=== PATIENT | female | born 1965 | race Two or more races ===

== ENCOUNTER 2017-03-14 11:30 | Emergency (ER) | payer MEDICAID ==
[~2017-03-14 11:30] MED LIST: ACET300T4; AMLO-20 PO; ASPI81CH58 PO; CARI-277 PO; DULO30CA PO; METO-291; TRAM50TA2
[2017-03-14] MEDS ORDERED: SODIUM CHLORIDE 0.9% 500 ML IV ONE (12:02)
[2017-03-14 12:36] LABS: Urine Bilirubin Negative (Negative); Urine Color Yellow (Yellow); Urine Glucose Normal (Normal); Urine Ketone Negative (Negative); Urine Mucus FEW (None Seen); Urine Nitrite Negative (Negative); Urine RBC 224 /hpf (0 - 4); Urine Squamous Epithelial Cell FEW /hpf (<5); Urine Urobilinogen Normal (Negative); Urine pH 5.5 (5.0-8.0)
[2017-03-14 12:41] LABS: Urine Blood 3+ /uL (Negative)
[2017-03-14 12:47] LABS: Basophils # (auto) 0 uL; Basophils % (auto) 0.6 % (0.0-2.0); Eosinophils # (auto) 0.3 uL; Eosinophils % (auto) 3.9 % (0.0-7.0); Hematocrit 44.3 % (36.0-46.0); Hemoglobin 14.8 g/dL (12.2-16.2); Lymphocytes # (auto) 1.8 uL; Lymphocytes % (auto) 24.1 % (10.0-50.0); Mean Corpuscular Hemoglobin 27.9 pg (28.0-32.0); Mean Corpuscular Hgb Conc. 33.3 g/dL (32.0-36.0); Mean Corpuscular Volume 83.8 fL (80.0-100.0); Mean Platelet Volume 11.5 fL (7.4-10.4); Monocytes # (auto) 0.5 uL; Monocytes % (auto) 6.5 % (0.0-12.0); Neutrophils % (auto) 64.9 % (37.0-80.0); Platelet Count (auto) 211 10^3/uL (140-450); Red Cell Distribution Width 14.1 % (11.6-16.0); SUSPECT VIEW TRANSMISSION; White Blood Cell 7.6 10^3/uL (4.4-10.8)
[2017-03-14 12:57] LABS: Albumin 3.7 g/dL (3.4-5.0); Calcium 8.7 mg/dL (8.5-10.1); Potassium 3.8 mmol/L (3.5-5.1)
[2017-03-14 12:59] LABS: BUN/Creatinine Ratio 17.6
[2017-03-14 13:01] LABS: Bilirubin, Total 0.5 mg/dL (0.2-1.0); Total Protein 7.9 g/dL (6.4-8.2)
[2017-03-14 16:00] VITALS: BP 114/49
== END 2017-03-14 16:00 | disposition home or self-care (01) ==
LOC: ER 11:30
DX: N93.8 Other specified abnormal uterine and vaginal bleeding (principal); I10 Essential (primary) hypertension; Z88.8 Allergy status to other drugs, medicaments and biological substances
CPT/HCPCS: 36415; 76830; 76856; 80053; 81001; 84702; 85025; 94761; 96360; 99285; J7040

== ENCOUNTER 2018-08-12 15:43 | Emergency (ER) | payer MEDICAID ==
[~2018-08-12] VITALS: Ht 144.8 cm; Wt 98.9 kg
[~2018-08-12 15:43] MED LIST changes: -AMLO-20 PO; -METO-291; +METO1TAB9; +[UNRECOGNIZED DRUG - CODE] PO
[2018-08-12 16:33] LABS: Urine Bacteria FEW /hpf (None Seen); Urine Blood Negative /uL (Negative); Urine Specific Gravity 1.024 (1.001-1.035); Urine WBC 3 /hpf (0 - 5)
[2018-08-12 16:54] LABS: Basophils # (auto) 0.1 uL; Basophils % (auto) 0.9 % (0.0-2.0); Eosinophils # (auto) 0.1 uL; Eosinophils % (auto) 0.6 % (0.0-7.0); Hematocrit 41.7 % (36.0-46.0); Lymphocytes # (auto) 2.1 uL; Lymphocytes % (auto) 19.9 % (10.0-50.0); Mean Corpuscular Hgb Conc. 33.7 g/dL (32.0-36.0); Mean Corpuscular Volume 86.1 fL (80.0-100.0); Monocytes # (auto) 0.6 uL; Monocytes % (auto) 5.4 % (0.0-12.0); Neutrophils # (auto) 7.7 uL; Neutrophils % (auto) 73.2 % (37.0-80.0); Nucleated Red Blood Cells % 0.1 %; Platelet Count (auto) 183 10^3/uL (140-450); Red Blood Cells 4.84 10^6/uL (4.0-5.20); Red Cell Distribution Width 13.9 % (11.8-14.3); White Blood Cell 10.5 10^3/uL (4.4-10.8)
[2018-08-12 17:14] LABS: Alanine Aminotransferase 28 U/L (13-56); Albumin 3.8 g/dL (3.4-5.0); Anion Gap 9 (5-15); Aspartate Aminotransferase 29 U/L (15-37); Blood Urea Nitrogen 17 mg/dL (7-18); Calcium 8.5 mg/dL (8.5-10.1); Carbon Dioxide 23 mmol/L (21-32); Chloride 109 mmol/L (98-107); GFR African American 105 mL/min; GFR Non-African American 87 mL/min; Glucose 100 mg/dL (74-106); Magnesium 2.2 mg/dL (1.6-2.6); Potassium 3.9 mmol/L (3.5-5.1); Sodium 141 mmol/L (136-145)
[2018-08-12 17:18] LABS: Alkaline Phosphatase 105 U/L (45-117); Bilirubin, Total 0.5 mg/dL (0.2-1.0); Total Protein 7.9 g/dL (6.4-8.2)
[2018-08-12 18:41] VITALS: BP 191/93
[2018-08-12] MEDS ORDERED: ONDANSETRON HCL 4 MG/2 ML VIAL IM ONE (21:00)
[2018-08-12] MEDS ORDERED: KETOROLAC TROMETH 60MG/2ML VIAL IM ONE (21:00)
== END 2018-08-12 21:57 | disposition home or self-care (01) ==
LOC: ER 15:43
DX: K80.20 Calculus of gallbladder without cholecystitis without obstruction (principal); N39.0 Urinary tract infection, site not specified; E78.5 Hyperlipidemia, unspecified; I10 Essential (primary) hypertension; Z88.6 Allergy status to analgesic agent; Z79.82 Long term (current) use of aspirin; Z79.899 Other long term (current) drug therapy
CPT/HCPCS: 36415; 76705; 80053; 81001; 83735; 84484; 85025; 93005; 96372; 99285; J1885; J2405

== ENCOUNTER 2022-07-18 20:47 | Inpatient (IN) | payer MEDICAID ==
[~2022-07-18] VITALS: Ht 144.8 cm; Wt 82.3 kg
[~2022-07-18 20:47] MED LIST changes: +ASPI1CHW13 PO; -ASPI81CH58 PO
[2022-07-18] MEDS ORDERED: ASPirin 325 MG TAB PO ONE (21:00)
[2022-07-18] MEDS ORDERED: ONDANSETRON HCL 4 MG/2 ML VIAL IV ONE (21:30)
[2022-07-18] MEDS ORDERED: MORPHINE SULFATE 4 MG/ML SYR/VIAL IV ONE (21:30)
[2022-07-18 21:54] LABS: Basophils # (auto) 0.1 10 ^3/uL (0-0.2); Basophils % (auto) 0.5 % (0.0-2.0); Eosinophils # (auto) 0.1 10 ^3/uL (0-0.8); Eosinophils % (auto) 1.3 % (0.0-7.0); Hematocrit 44.9 % (36.0-46.0); Hemoglobin 14.8 g/dL (12.2-16.2); Lymphocytes # (auto) 2.1 10 ^3/uL (0.4-5.4); Lymphocytes % (auto) 21.5 % (10.0-50.0); Mean Corpuscular Hemoglobin 28.1 pg (28.0-32.0); Mean Corpuscular Volume 85.1 fL (80.0-100.0); Monocytes # (auto) 0.5 10 ^3/uL (0-1.3); Monocytes % (auto) 5.1 % (0.0-12.0); Neutrophils % (auto) 71.6 % (37.0-80.0); Nucleated Red Blood Cells % 0.1 %; Red Blood Cells 5.28 10^6/uL (4.0-5.20); Red Cell Distribution Width 13.1 % (11.8-14.3); White Blood Cell 9.7 10^3/uL (4.4-10.8)
[2022-07-18 22:02] LABS: Albumin 3.8 g/dL (3.4-5.0); Calcium 9.1 mg/dL (8.5-10.1); Potassium 3.5 mmol/L (3.5-5.1)
[2022-07-18 22:06] LABS: BUN/Creatinine Ratio 14.1; Bilirubin, Total 0.5 mg/dL (0.2-1.0); Total Protein 7.6 g/dL (6.4-8.2)
[2022-07-18] MEDS ORDERED: IOHEXOL 350 MG/ML 100ML IJ ONE (23:44)
[2022-07-19 01:50] LABS: Urine Bacteria FEW /hpf (None Seen); Urine Blood Negative /uL (Negative); Urine Hyaline Cast FEW /lpf (0 - 2); Urine Mucus FEW (None Seen); Urine Specific Gravity 1.028 (1.001-1.035); Urine WBC 3 /hpf (0 - 5)
[2022-07-19] MEDS ORDERED: NITR-87 PO (02:30)
[2022-07-19] MEDS ORDERED: cefTRIAXone SOD 1,000 MG VL IM ONE (02:30)
[2022-07-19] MEDS ORDERED: LABETALOL HCL 5 MG/ML 4ML SYRINGE IV ONE (02:30)
[2022-07-19] MEDS ORDERED: DONNATAL 5ml ORAL Elix (BELLADONNA ALK-PHENOBARB) PO ONE (04:00)
[2022-07-19] MEDS ORDERED: LIDOCAINE VISCOUS 2% 15ML UD PO ONE (04:00)
[2022-07-19] MEDS ORDERED: ALUM & MAG HYDROX-SIMETH LIQ(MAALOX) 30 ML PO ONE (04:00)
[2022-07-19] MEDS ORDERED: SODIUM CHLORIDE 0.9% 1,000 ML IV ONE (04:30)
[2022-07-19] MEDS ORDERED: LORazepam 2MG/ML-1ML VIAL IV ONE (04:30)
[2022-07-19] MEDS ORDERED: HYDROcodone-ACET 5/325MG TAB PO PRN (06:30)
[2022-07-19] MEDS ORDERED: ACETAMINOPHEN 325 MG TAB PO PRN (06:30)
[2022-07-19] MEDS: ONDANSETRON HCL 4 MG/2 ML VIAL IV PRN ×2 (07:06→11:53)
[2022-07-19] MEDS: MORPHINE SULFATE INJ 2 MG/ml SYRG IV PRN (07:07)
[2022-07-19] MEDS: cefTRIAXone 1GM/50ML D5W 50 ML IV SCH (08:51)
[2022-07-19] MEDS: amLODIPine BESYLATE 5 MG TAB PO SCH (08:52)
[2022-07-19] MEDS: METOPROLOL SUCCINATE XL 50 MG TAB PO SCH (08:53)
[2022-07-19] MEDS: hydrALAZINE HCL 20 MG/ML VL IV PRN ×2 (11:54→23:43)
[2022-07-19] MEDS ORDERED: METOPROLOL TARTRATE 1MG/1ML-5ML VIAL IV PRN (12:30)
[2022-07-19] MEDS: cloNIDine HCL 0.1 MG TAB PO PRN (17:15)
[2022-07-19 21:14] VITALS: BP 170/76
[2022-07-19] MEDS ORDERED: SUCR1TAB PO (21:27)
[2022-07-19] MEDS ORDERED: PANT40T PO (21:27)
[2022-07-19] MEDS ORDERED: METF-869 PO (21:27)
[2022-07-19] MEDS ORDERED: CLON0.2T PO (21:27)
[2022-07-19 21:47] VITALS: BP 183/91
[2022-07-20] MEDS: cloNIDine HCL 0.1 MG TAB PO PRN ×2 (05:06→18:46)
[2022-07-20 05:35] VITALS: BP 182/93
[2022-07-20 06:41] LABS: Basophils # (auto) 0.1 10 ^3/uL (0-0.2); Basophils % (auto) 0.5 % (0.0-2.0); Eosinophils # (auto) 0 10 ^3/uL (0-0.8); Hematocrit 44.9 % (36.0-46.0); Hemoglobin 14.9 g/dL (12.2-16.2); Lymphocytes # (auto) 2.3 10 ^3/uL (0.4-5.4); Lymphocytes % (auto) 17.8 % (10.0-50.0); Mean Corpuscular Hgb Conc. 33.1 g/dL (32.0-36.0); Mean Corpuscular Volume 84.3 fL (80.0-100.0); Monocytes # (auto) 1.2 10 ^3/uL (0-1.3); Monocytes % (auto) 9.5 % (0.0-12.0); Neutrophils # (auto) 9.2 10 ^3/uL (1.6-8.6); Neutrophils % (auto) 72.2 % (37.0-80.0); Nucleated Red Blood Cells % 0.1 %; Red Blood Cells 5.32 10^6/uL (4.0-5.20); Red Cell Distribution Width 13.6 % (11.8-14.3); White Blood Cell 12.7 10^3/uL (4.4-10.8)
[2022-07-20 06:55] LABS: Albumin 3.3 g/dL (3.4-5.0); Calcium 8.6 mg/dL (8.5-10.1); Potassium 3.1 mmol/L (3.5-5.1)
[2022-07-20 07:00] LABS: Bilirubin, Total 0.8 mg/dL (0.2-1.0); Total Protein 6.1 g/dL (6.4-8.2)
[2022-07-20] MEDS ORDERED: NALOXONE HCL 0.4 MG/ML VIAL ONE (08:49)
[2022-07-20] MEDS ORDERED: LIDOCAINE VISCOUS 2% 15ML UD ONE (08:50)
[2022-07-20] MEDS ORDERED: SODIUM CHLORIDE LOCK 10 ML ONE (08:50)
[2022-07-20] MEDS ORDERED: EPINEPHrine HCL 1 MG/10 ML SYRG ONE (08:50)
[2022-07-20] MEDS ORDERED: FLUMAZENIL 0.1 MG/ML INJ 10ML MDV IV ONE (08:50)
[2022-07-20 09:00] VITALS: BP 157/79
[2022-07-20] MEDS: PANTOPRAZOLE 40 MG/10 ML VIAL INJ IV SCH (10:00)
[2022-07-20 10:04] LABS: INR 1.07 (0.9-1.15); Partial Thromboplastin Time 24.9 sec (24.6-33.4)
[2022-07-20] MEDS: amLODIPine BESYLATE 5 MG TAB PO SCH (10:08)
[2022-07-20] MEDS: METOPROLOL SUCCINATE XL 50 MG TAB PO SCH (10:08)
[2022-07-20] MEDS: cefTRIAXone 1GM/50ML D5W 50 ML IV SCH (11:49)
[2022-07-20 13:00] VITALS: BP 152/53
[2022-07-20] MEDS: MIDAZOLAM HCL 5 MG/ML-1ML VIAL ONE ×2 (15:46→15:49)
[2022-07-20] MEDS: diphenhdrAMINE HCL 50 MG/1 ML VL ONE ×2 (15:46→15:48)
[2022-07-20] MEDS: fentaNYL CITRATE 100 MCG/2 ML VL ONE ×3 (15:46→15:52)
[2022-07-20] MEDS: hydrALAZINE HCL 20 MG/ML VL IV PRN (18:01)
[2022-07-20] MEDS: MORPHINE SULFATE INJ 2 MG/ml SYRG IV PRN (18:01)
[2022-07-20 22:00] VITALS: BP 131/74
[2022-07-21 05:00] VITALS: BP 92/49
[2022-07-21] MEDS: cefTRIAXone 1GM/50ML D5W 50 ML IV SCH (08:22)
[2022-07-21] MEDS: PANTOPRAZOLE 40 MG/10 ML VIAL INJ IV SCH (08:22)
[2022-07-21] MEDS: METOPROLOL SUCCINATE XL 50 MG TAB PO SCH (08:35)
[2022-07-21] MEDS: amLODIPine BESYLATE 5 MG TAB PO SCH (08:35)
[2022-07-21 09:00] VITALS: BP 101/66
[2022-07-21] MEDS ORDERED: PANT40TA2 PO (10:26)
[2022-07-21] MEDS ORDERED: LEVO500T31 PO (10:26)
[2022-07-21] MEDS ORDERED: SUCR1TAB PO (10:26)
[2022-07-21 11:25] VITALS: BP 101/66
== END 2022-07-21 13:05 | disposition home or self-care (01) | DRG 241 ==
LOC: ER 20:48 → OVERFLOW 07-19 06:28 → TELE-WESTW 07-19 20:53
PROVIDERS: ADMIT Nurse Practitioner; ATTEND Internal Medicine
PROC: 0DB68ZX Excision of Stomach, Via Natural or Artificial Opening Endoscopic, Diagnostic (ICD-10-PCS; 2022-07-20)
PROC: 0DB48ZX Excision of Esophagogastric Junction, Via Natural or Artificial Opening Endoscopic, Diagnostic (ICD-10-PCS; 2022-07-20)
PROC: 0DB98ZX Excision of Duodenum, Via Natural or Artificial Opening Endoscopic, Diagnostic (ICD-10-PCS; principal; 2022-07-20 15:40)
DX: K29.70 Gastritis, unspecified, without bleeding (principal); K22.10 Ulcer of esophagus without bleeding; E66.01 Morbid (severe) obesity due to excess calories; I10 Essential (primary) hypertension; K31.7 Polyp of stomach and duodenum; N39.0 Urinary tract infection, site not specified; E78.5 Hyperlipidemia, unspecified; K21.9 Gastro-esophageal reflux disease without esophagitis; Z20.822 Contact with and (suspected) exposure to COVID-19; K29.80 Duodenitis without bleeding; Z88.8 Allergy status to other drugs, medicaments and biological substances; Z68.39 Body mass index [BMI] 39.0-39.9, adult; Z90.49 Acquired absence of other specified parts of digestive tract
CPT/HCPCS: 36415; 43239; 71045; 74176; 80053; 81001; 83690; 84484; 85025; 85379; 85610; 85730; 93005; 96365; 96375; C9113; G0378; J0696; J2250; J2405; J3490

== ENCOUNTER 2023-01-23 11:25 | Inpatient (IN) | payer MEDICAID ==
[~2023-01-23] VITALS: Ht 152.4 cm; Wt 81.0 kg
[~2023-01-23 11:25] MED LIST changes: +CLON0.2T PO; +LEVO500T31 PO; +METF-869 PO; +NITR-87 PO; +PANT40TA2 PO; +SUCR1TAB PO
[2023-01-23] MEDS ORDERED: ONDANSETRON HCL 4 MG/2 ML VIAL IV ONE (11:45)
[2023-01-23] MEDS ORDERED: LIDOCAINE VISCOUS 2% 15ML UD PO ONE (11:45)
[2023-01-23] MEDS ORDERED: LACTATED RINGER'S 1,000 ML IV ONE (11:45)
[2023-01-23] MEDS ORDERED: FAMOTIDINE (10MG/ML) 2ML VL IV ONE (11:45)
[2023-01-23] MEDS ORDERED: MAALOX PLUS or MAALOX 30 ML PO ONE (11:45)
[2023-01-23] MEDS ORDERED: LACTATED RINGER'S 2,000 ML IV ONE (12:15)
[2023-01-23 12:21] LABS: Hematocrit 54.8 % (36.0-46.0); Mean Corpuscular Hemoglobin 28.3 pg (28.0-32.0); Mean Corpuscular Hgb Conc. 34.6 g/dL (32.0-36.0); Mean Corpuscular Volume 81.6 fL (80.0-100.0); Red Blood Cells 6.72 10^6/uL (4.0-5.20); Red Cell Distribution Width 13.9 % (11.8-14.3); White Blood Cell 19.8 10^3/uL (4.4-10.8)
[2023-01-23 12:41] LABS: Albumin 3.2 g/dL (3.4-5.0); Calcium 8.8 mg/dL (8.5-10.1); Potassium 3.8 mmol/L (3.5-5.1)
[2023-01-23 12:43] LABS: Bilirubin, Total 1.7 mg/dL (0.2-1.0)
[2023-01-23 13:08] LABS: Basophils % (manual) 0 (0.0-2.0); Blast Cells 0; Eosinophils % (manual) 0 (0-7); Metamyelocytes % 0; Myelocytes % 0; Promyelocytes % 0; Reactive Lymphocytes 0
[2023-01-23 13:14] LABS: Total Protein 6.8 g/dL (6.4-8.2)
[2023-01-23 13:37] LABS: Lactic Acid w/Reflex 11.5 mmol/L (0.4-2.0)
[2023-01-23 14:11] LABS: Band Neutrophils % (manual) 15; Lymphocytes % (manual) 3 (10.0-50.0); Monocytes % (manual) 2 (0-12)
[2023-01-23] MEDS ORDERED: CEFEPIME 1GM/ 50ML 50 ML IV ONE (14:45)
[2023-01-23] MEDS ORDERED: VANCOMYCIN 1GM/250ML 250 ML IV ONE (14:45)
[2023-01-23] MEDS ORDERED: ACETAMINOPHEN 325 MG TAB PO ONE (14:45)
[2023-01-23] MEDS ORDERED: ASPirin 325 MG TAB PO ONE (14:45)
[2023-01-23] MEDS ORDERED: MORPHINE SULFATE INJ 2 MG/ml SYRG IV ONE (15:00)
[2023-01-23] MEDS ORDERED: metroNIDAZOLE 500MG/100ML 100 ML IV ONE (15:45)
[2023-01-23] MEDS ORDERED: NITROGLYCERIN 0.4 MG SL TAB SL PRN (17:15)
[2023-01-23] MEDS ORDERED: DEXTROSE (50%) 50ML SYRG IV PRN (17:15)
[2023-01-23] MEDS ORDERED: MORPHINE SULFATE INJ 2 MG/ml SYRG IV PRN (17:15)
[2023-01-23] MEDS ORDERED: ACETAMINOPHEN 325 MG TAB PO PRN (17:15)
[2023-01-23] MEDS ORDERED: VANCOMYCIN PER PHARMACY 0 MG IV SCH (17:15)
[2023-01-23] MEDS ORDERED: METOPROLOL TARTRATE 1MG/1ML-5ML VIAL IV ONE (18:15)
[2023-01-23] MEDS ORDERED: LOPERAMIDE HCL 2 MG CAP/TAB PO PRN (18:15)
[2023-01-23] MEDS: MORPHINE SULFATE INJ 2 MG/ml SYRG IV PRN (18:55)
[2023-01-23] MEDS: SODIUM CHLORIDE 0.9% 1,000 ML IV SCH (18:56)
[2023-01-23 19:34] LABS: Lactic Acid w/Reflex 8.5 mmol/L (0.4-2.0)
[2023-01-23 19:37] LABS: Cholesterol 142 mg/dL (< 200)
[2023-01-23 19:40] LABS: HDL Cholesterol 60 mg/dL (40-59); LDL Cholesterol 71 mg/dL (< 100); Triglycerides 228 mg/dL (< 150)
[2023-01-23 19:42] LABS: Urine Bacteria NONE SEEN /hpf (None Seen); Urine Blood 3+ /uL (Negative); Urine Mucus FEW (None Seen); Urine Specific Gravity 1.019 (1.001-1.035); Urine WBC 64 /hpf (0 - 5)
[2023-01-23] MEDS ORDERED: ENOXAPARIN SOD 100 MG/1 ML SYRINGE SC SCH (22:00)
[2023-01-23] MEDS: ACCU-CHEK COMFORT CURVE STRIP VI SCH (22:32)
[2023-01-23] MEDS: CEFEPIME 1GM/ 50ML 50 ML IV SCH (22:39)
[2023-01-23] MEDS: metroNIDAZOLE 500MG/100ML 100 ML IV SCH (22:39)
[2023-01-23] MEDS: SUCRALFATE 1 GM TAB PO SCH (22:42)
[2023-01-23] MEDS: cloNIDine HCL 0.1 MG TAB PO SCH (22:42)
[2023-01-23] MEDS: InsuLIN REG 1unit/0.01ml Soln (100units/ml) SC SCH (22:43)
[2023-01-24] MEDS: MORPHINE SULFATE INJ 2 MG/ml SYRG IV PRN ×2 (05:28→21:50)
[2023-01-24] MEDS: SODIUM CHLORIDE 0.9% 1,000 ML IV SCH ×2 (06:01→11:25)
[2023-01-24] MEDS: ACCU-CHEK COMFORT CURVE STRIP VI SCH ×4 (06:13→20:45)
[2023-01-24 06:18] LABS: Basophils # (auto) 0 10 ^3/uL (0-0.2); Eosinophils # (auto) 0 10 ^3/uL (0-0.8); Lymphocytes # (auto) 1.9 10 ^3/uL (0.4-5.4); Monocytes # (auto) 1.4 10 ^3/uL (0-1.3); Monocytes % (auto) 8.4 % (0.0-12.0); Neutrophils # (auto) 13.7 10 ^3/uL (1.6-8.6); Red Cell Distribution Width 14.1 % (11.8-14.3); White Blood Cell 17.1 10^3/uL (4.4-10.8)
[2023-01-24 06:23] LABS: Basophils % (auto) 0.1 % (0.0-2.0); Hematocrit 49.5 % (36.0-46.0); Hemoglobin 16.3 g/dL (12.2-16.2); Lymphocytes % (auto) 11.1 % (10.0-50.0); Mean Corpuscular Hemoglobin 27.9 pg (28.0-32.0); Mean Corpuscular Hgb Conc. 32.9 g/dL (32.0-36.0); Mean Corpuscular Volume 84.6 fL (80.0-100.0); Neutrophils % (auto) 80.4 % (37.0-80.0); Nucleated Red Blood Cells % 0.4 %; Red Blood Cells 5.85 10^6/uL (4.0-5.20)
[2023-01-24] MEDS: metroNIDAZOLE 500MG/100ML 100 ML IV SCH ×2 (06:30→14:40)
[2023-01-24] MEDS: SUCRALFATE 1 GM TAB PO SCH ×3 (06:31→17:26)
[2023-01-24] MEDS: cloNIDine HCL 0.1 MG TAB PO SCH (06:32)
[2023-01-24] MEDS: InsuLIN REG 1unit/0.01ml Soln (100units/ml) SC SCH ×4 (06:33→20:45)
[2023-01-24 07:45] LABS: Albumin 2.3 g/dL (3.4-5.0); BUN/Creatinine Ratio 16.8; Calcium 7.6 mg/dL (8.5-10.1); Potassium 3.6 mmol/L (3.5-5.1)
[2023-01-24 07:50] LABS: Bilirubin, Total 1.8 mg/dL (0.2-1.0); Total Protein 5.5 g/dL (6.4-8.2)
[2023-01-24] MEDS ORDERED: cloNIDine HCL 0.1 MG TAB PO PRN (08:30)
[2023-01-24] MEDS ORDERED: DULoxetine HCL 30 MG CAP PO SCH (10:00)
[2023-01-24] MEDS ORDERED: METOPROLOL TARTRATE 25 MG TAB PO SCH (10:00)
[2023-01-24] MEDS ORDERED: amLODIPine BESYLATE 5 MG TAB PO SCH ×2 (10:00)
[2023-01-24] MEDS ORDERED: ASPirin 81 mg TAB PO SCH (10:00)
[2023-01-24] MEDS: CEFEPIME 1GM/ 50ML 50 ML IV SCH (11:18)
[2023-01-24] MEDS: PANTOPRAZOLE 40 MG/10 ML VIAL INJ IV SCH (11:25)
[2023-01-24] MEDS ORDERED: DEXTROSE (50%) 50ML SYRG IV PRN (12:00)
[2023-01-24] MEDS ORDERED: HEPARIN DRIP/D5W 100UNITS/ML 250 ML IV SCH (12:00)
[2023-01-24 14:53] LABS: Eosinophils # (auto) 0 10 ^3/uL (0-0.8); Eosinophils % (auto) 0.1 % (0.0-7.0); Monocytes # (auto) 1.2 10 ^3/uL (0-1.3)
[2023-01-24 14:55] LABS: Basophils # (auto) 0.1 10 ^3/uL (0-0.2); Basophils % (auto) 0.4 % (0.0-2.0); Hematocrit 42.4 % (36.0-46.0); Hemoglobin 14.1 g/dL (12.2-16.2); Lymphocytes # (auto) 2.4 10 ^3/uL (0.4-5.4); Mean Corpuscular Hemoglobin 28.3 pg (28.0-32.0); Mean Corpuscular Hgb Conc. 33.3 g/dL (32.0-36.0); Mean Corpuscular Volume 84.7 fL (80.0-100.0); Monocytes % (auto) 9.1 % (0.0-12.0); Neutrophils # (auto) 9.7 10 ^3/uL (1.6-8.6); Neutrophils % (auto) 72.4 % (37.0-80.0); Nucleated Red Blood Cells % 0.3 %; Red Cell Distribution Width 14.6 % (11.8-14.3); White Blood Cell 13.4 10^3/uL (4.4-10.8)
[2023-01-24] MEDS ORDERED: VANCOMYCIN 1GM/250ML 250 ML IV SCH (15:00)
[2023-01-24 15:15] LABS: INR 1.1 (0.9-1.15); Partial Thromboplastin Time 30.3 sec (24.6-33.4)
[2023-01-24] MEDS: SODIUM BICARBONATE 50ML VIAL 50 ML in SOD CHL 0.45% 1,000 ML IV SCH ×2 (17:26→20:54)
[2023-01-24 22:00] VITALS: BP 149/92
[2023-01-25 00:15] LABS: Alcohol, Urine < 3.0 mg/dL (0-10); Amphetamine Screen, Urine NEGATIVE (NEGATIVE); Barbiturate Scree,Urine NEGATIVE (NEGATIVE); Benzodiazephine Screen, Urine NEGATIVE (NEGATIVE); Cannabinoid Screen, Urine NEGATIVE (NEGATIVE); Cocaine Screen, Urine NEGATIVE (NEGATIVE); Opiate Scree,Urine NEGATIVE (NEGATIVE); Phencyclidine Screen, Urine NEGATIVE (NEGATIVE); Protein, Urine 33.4 mg/dL (0.0-11.9)
[2023-01-25] MEDS: metroNIDAZOLE 500MG/100ML 100 ML IV SCH ×4 (01:16→21:47)
[2023-01-25] MEDS: ACCU-CHEK COMFORT CURVE STRIP VI SCH ×7 (01:16→23:18)
[2023-01-25] MEDS: SUCRALFATE 1 GM TAB PO SCH ×5 (01:16→21:47)
[2023-01-25 01:47] VITALS: BP 149/92
[2023-01-25] MEDS: CEFEPIME 1GM/ 50ML 50 ML IV SCH ×2 (03:30→10:19)
[2023-01-25] MEDS: InsuLIN REG 1unit/0.01ml Soln (100units/ml) SC SCH ×7 (04:00→23:18)
[2023-01-25] MEDS ORDERED: SODIUM BICARBONATE 8.4 % INJ 50ML VIAL IV ONE (04:43)
[2023-01-25] MEDS ORDERED: ATOR-47 PO (04:57)
[2023-01-25 05:02] VITALS: BP 145/82
[2023-01-25 05:40] LABS: Basophils # (auto) 0.1 10 ^3/uL (0-0.2); Hemoglobin 11.6 g/dL (12.2-16.2); Mean Corpuscular Hgb Conc. 34.1 g/dL (32.0-36.0)
[2023-01-25 05:44] LABS: Basophils % (auto) 0.5 % (0.0-2.0); Eosinophils # (auto) 0 10 ^3/uL (0-0.8); Eosinophils % (auto) 0.4 % (0.0-7.0); Lymphocytes % (auto) 18.9 % (10.0-50.0); Mean Corpuscular Volume 82.3 fL (80.0-100.0); Monocytes # (auto) 1.1 10 ^3/uL (0-1.3); Monocytes % (auto) 10.9 % (0.0-12.0); Neutrophils # (auto) 7.3 10 ^3/uL (1.6-8.6); Neutrophils % (auto) 69.3 % (37.0-80.0); Nucleated Red Blood Cells % 0.1 %; Red Blood Cells 4.14 10^6/uL (4.0-5.20); Red Cell Distribution Width 14.2 % (11.8-14.3); White Blood Cell 10.5 10^3/uL (4.4-10.8)
[2023-01-25 06:13] LABS: Albumin 2.4 g/dL (3.4-5.0); BUN/Creatinine Ratio 16.9; Bilirubin, Total 0.9 mg/dL (0.2-1.0); Calcium 7.4 mg/dL (8.5-10.1); Magnesium 2.4 mg/dL (1.6-2.6); Potassium 3.1 mmol/L (3.5-5.1); Total Protein 5.1 g/dL (6.4-8.2)
[2023-01-25] MEDS: SODIUM BICARBONATE 50ML VIAL 50 ML in SOD CHL 0.45% 1,000 ML IV SCH ×3 (06:48→22:06)
[2023-01-25] MEDS ORDERED: LOPERAMIDE HCL 2 MG CAP/TAB PO PRN (09:30)
[2023-01-25] MEDS: POTASSIUM CHL 20MEQ/100ML 100 ML IV SCH ×2 (10:19→13:02)
[2023-01-25] MEDS: PANTOPRAZOLE 40 MG/10 ML VIAL INJ IV SCH (10:20)
[2023-01-25] MEDS: MORPHINE SULFATE INJ 2 MG/ml SYRG IV PRN (10:21)
[2023-01-25 13:00] VITALS: BP 174/69
[2023-01-25] MEDS: hydrALAZINE HCL 20 MG/ML VL IV PRN (13:02)
[2023-01-25] MEDS ORDERED: CIPROFLOXACIN 400MG/200ML 200 ML IV ONE ×2 (14:15)
[2023-01-25] MEDS ORDERED: NIFEdipine ER 30 MG TAB PO ONE (14:30)
[2023-01-25] MEDS: HYDROmorphone HCL 2 MG/ML VL/or syr IV PRN ×2 (15:15→20:36)
[2023-01-25] MEDS: CIPROFLOXACIN 400MG/200ML 200 ML IV SCH (16:26)
[2023-01-25 17:00] VITALS: BP 193/99
[2023-01-25] MEDS ORDERED: CARVEDILOL 12.5 MG TAB PO ONE (17:00)
[2023-01-25] MEDS: CARVEDILOL 12.5 MG TAB PO SCH (21:48)
[2023-01-25 22:00] VITALS: BP 157/86
[2023-01-26] MEDS: CIPROFLOXACIN 400MG/200ML 200 ML IV SCH ×2 (03:01→18:17)
[2023-01-26] MEDS: InsuLIN REG 1unit/0.01ml Soln (100units/ml) SC SCH ×6 (03:02→23:27)
[2023-01-26] MEDS: ACCU-CHEK COMFORT CURVE STRIP VI SCH ×6 (03:02→23:26)
[2023-01-26 05:00] VITALS: BP 133/72
[2023-01-26] MEDS: metroNIDAZOLE 500MG/100ML 100 ML IV SCH ×3 (05:51→21:49)
[2023-01-26] MEDS: HYDROmorphone HCL 2 MG/ML VL/or syr IV PRN ×3 (05:52→15:03)
[2023-01-26 06:08] LABS: BUN/Creatinine Ratio 9.8; Calcium 8.2 mg/dL (8.5-10.1); Magnesium 2.2 mg/dL (1.6-2.6)
[2023-01-26 06:25] LABS: Basophils # (auto) 0.1 10 ^3/uL (0-0.2); Basophils % (auto) 0.6 % (0.0-2.0); Eosinophils # (auto) 0.1 10 ^3/uL (0-0.8); Eosinophils % (auto) 1.6 % (0.0-7.0); Hematocrit 37.5 % (36.0-46.0); Hemoglobin 12.7 g/dL (12.2-16.2); Lymphocytes # (auto) 2.1 10 ^3/uL (0.4-5.4); Lymphocytes % (auto) 24.1 % (10.0-50.0); Mean Corpuscular Hemoglobin 28.1 pg (28.0-32.0); Mean Corpuscular Hgb Conc. 33.9 g/dL (32.0-36.0); Mean Corpuscular Volume 82.7 fL (80.0-100.0); Monocytes % (auto) 11.7 % (0.0-12.0); Neutrophils # (auto) 5.4 10 ^3/uL (1.6-8.6); Nucleated Red Blood Cells % 0.2 %; Red Blood Cells 4.54 10^6/uL (4.0-5.20); Red Cell Distribution Width 14.5 % (11.8-14.3); White Blood Cell 8.7 10^3/uL (4.4-10.8)
[2023-01-26] MEDS: SUCRALFATE 1 GM TAB PO SCH ×4 (06:29→21:50)
[2023-01-26] MEDS: SODIUM BICARBONATE 50ML VIAL 50 ML in SOD CHL 0.45% 1,000 ML IV SCH (06:29)
[2023-01-26 06:46] VITALS: BP 138/80
[2023-01-26 07:17] LABS: Potassium 2.8 mmol/L (3.5-5.1)
[2023-01-26 08:00] VITALS: BP 153/89
[2023-01-26] MEDS ORDERED: POTASSIUM CHL 20MEQ/100ML 100 ML IV ONE ×2 (08:00→10:30)
[2023-01-26] MEDS ORDERED: POTASSIUM EFFERVESENT TAB 25 MEQ PO ONE (08:45)
[2023-01-26 09:21] LABS: Hepatitis A Ab IgM Negative
[2023-01-26 09:22] LABS: Hepatitis B Core IgM Negative; Hepatitis C Antibody Negative (Negative)
[2023-01-26] MEDS ORDERED: NIFEdipine ER 30 MG TAB PO SCH (10:00)
[2023-01-26] MEDS ORDERED: CIPROFLOXACIN 400MG/200ML 200 ML IV SCH (10:00)
[2023-01-26] MEDS: PANTOPRAZOLE 40 MG/10 ML VIAL INJ IV SCH (10:09)
[2023-01-26] MEDS: CARVEDILOL 12.5 MG TAB PO SCH ×2 (10:11→21:51)
[2023-01-26 12:00] VITALS: BP 158/86
[2023-01-26] MEDS ORDERED: POTASSIUM CHLORIDE 60 MEQ, LIDOCAINE 1% (LOCAL ANESTH.) 6 ML in SODIUM CHL 0.9% 500 ML IV ONE (12:30)
[2023-01-26] MEDS ORDERED: CARVEDILOL 12.5 MG TAB PO ONE (12:30)
[2023-01-26] MEDS ORDERED: NIFEdipine ER 30 MG TAB PO ONE (12:30)
[2023-01-26] MEDS ORDERED: POTASSIUM EFFERVESENT TAB 25 MEQ PO SCH (14:00)
[2023-01-26 16:00] VITALS: BP 149/71
[2023-01-26 22:00] VITALS: BP 136/72
[2023-01-27] MEDS: CIPROFLOXACIN 400MG/200ML 200 ML IV SCH ×2 (03:06→15:18)
[2023-01-27] MEDS: InsuLIN REG 1unit/0.01ml Soln (100units/ml) SC SCH ×5 (04:00→20:11)
[2023-01-27 05:00] VITALS: BP 127/70
[2023-01-27] MEDS: ACCU-CHEK COMFORT CURVE STRIP VI SCH ×5 (05:17→20:10)
[2023-01-27] MEDS: SUCRALFATE 1 GM TAB PO SCH ×2 (05:51→11:31)
[2023-01-27] MEDS: metroNIDAZOLE 500MG/100ML 100 ML IV SCH (05:51)
[2023-01-27] MEDS: HYDROmorphone HCL 2 MG/ML VL/or syr IV PRN ×2 (05:52→11:31)
[2023-01-27 06:26] LABS: Basophils # (auto) 0.1 10 ^3/uL (0-0.2); Basophils % (auto) 0.6 % (0.0-2.0); Eosinophils # (auto) 0.3 10 ^3/uL (0-0.8); Eosinophils % (auto) 2.7 % (0.0-7.0); Hematocrit 41.9 % (36.0-46.0); Hemoglobin 14.2 g/dL (12.2-16.2); Mean Corpuscular Hgb Conc. 33.8 g/dL (32.0-36.0); Mean Corpuscular Volume 82.7 fL (80.0-100.0); Monocytes % (auto) 9.6 % (0.0-12.0); Neutrophils % (auto) 68.1 % (37.0-80.0); Nucleated Red Blood Cells % 0.2 %; Red Blood Cells 5.06 10^6/uL (4.0-5.20); Red Cell Distribution Width 14.7 % (11.8-14.3); White Blood Cell 10.3 10^3/uL (4.4-10.8)
[2023-01-27 06:47] LABS: Potassium 3.8 mmol/L (3.5-5.1)
[2023-01-27 07:07] LABS: BUN/Creatinine Ratio 9.3; Calcium 8.6 mg/dL (8.5-10.1)
[2023-01-27 08:00] VITALS: BP 180/93
[2023-01-27 08:05] VITALS: BP 180/93
[2023-01-27] MEDS: hydrALAZINE HCL 20 MG/ML VL IV PRN ×2 (08:52→15:19)
[2023-01-27] MEDS ORDERED: MAALOX PLUS or MAALOX 30 ML PO ONE (09:15)
[2023-01-27] MEDS: PANTOPRAZOLE 40 MG/10 ML VIAL INJ IV SCH (09:41)
[2023-01-27] MEDS: NIFEdipine ER 30 MG TAB PO SCH (09:41)
[2023-01-27] MEDS: CARVEDILOL 12.5 MG TAB PO SCH ×2 (09:41→21:32)
[2023-01-27] MEDS ORDERED: LIDOCAINE VISCOUS 2% 15ML UD ONE (10:06)
[2023-01-27] MEDS ORDERED: fentaNYL CITRATE 100 MCG/2 ML VL ONE (10:07)
[2023-01-27] MEDS ORDERED: diphenhdrAMINE HCL 50 MG/1 ML VL ONE (10:07)
[2023-01-27] MEDS ORDERED: MIDAZOLAM HCL 2MG/2ML 2ml VIAL (1mg/ml) ONE (10:07)
[2023-01-27 11:56] VITALS: BP 147/97
[2023-01-27] MEDS ORDERED: PROPOFOL 10 MG/ML 20 ML IV ONE (13:48)
[2023-01-27] MEDS ORDERED: LIDOCAINE HCL 100 MG/5ML (2%) SYRG INJ IV ONE (13:48)
[2023-01-27] MEDS ORDERED: ONDANSETRON HCL 4 MG/2 ML VIAL IV STA (14:49)
[2023-01-27 16:00] VITALS: BP 137/78
[2023-01-27] MEDS: SUCRALFATE 1 GM/10 ML ORAL SUSP PO SCH ×2 (17:30→21:32)
[2023-01-27 22:00] VITALS: BP 148/71
[2023-01-28] VITALS (7 sets, daily range): BP systolic 128–150; BP diastolic 70–94
[2023-01-28] MEDS: ACCU-CHEK COMFORT CURVE STRIP VI SCH ×6 (00:57→21:34)
[2023-01-28] MEDS: InsuLIN REG 1unit/0.01ml Soln (100units/ml) SC SCH ×6 (04:00→21:20)
[2023-01-28] MEDS: CIPROFLOXACIN 400MG/200ML 200 ML IV SCH ×2 (05:54→15:13)
[2023-01-28 05:56] LABS: Basophils # (auto) 0.1 10 ^3/uL (0-0.2); Basophils % (auto) 0.5 % (0.0-2.0); Eosinophils # (auto) 0.1 10 ^3/uL (0-0.8); Eosinophils % (auto) 0.9 % (0.0-7.0); Lymphocytes # (auto) 1.8 10 ^3/uL (0.4-5.4); Lymphocytes % (auto) 18.1 % (10.0-50.0); Mean Corpuscular Hemoglobin 28.6 pg (28.0-32.0); Mean Corpuscular Volume 81.9 fL (80.0-100.0); Monocytes # (auto) 0.9 10 ^3/uL (0-1.3); Monocytes % (auto) 8.5 % (0.0-12.0); Neutrophils # (auto) 7.2 10 ^3/uL (1.6-8.6); Nucleated Red Blood Cells % 0.3 %; Red Blood Cells 5.25 10^6/uL (4.0-5.20); Red Cell Distribution Width 14.3 % (11.8-14.3); White Blood Cell 10.1 10^3/uL (4.4-10.8)
[2023-01-28] MEDS: SUCRALFATE 1 GM/10 ML ORAL SUSP PO SCH ×4 (05:56→21:33)
[2023-01-28] MEDS: hydrALAZINE HCL 20 MG/ML VL IV PRN (06:01)
[2023-01-28 06:15] LABS: Magnesium 2.2 mg/dL (1.6-2.6); Potassium 3.3 mmol/L (3.5-5.1)
[2023-01-28 06:18] LABS: Calcium 8.8 mg/dL (8.5-10.1)
[2023-01-28] MEDS ORDERED: POTASSIUM CHL 20MEQ/100ML 100 ML IV ONE (08:00)
[2023-01-28] MEDS: HYDROmorphone HCL 2 MG/ML VL/or syr IV PRN ×2 (08:48→15:22)
[2023-01-28] MEDS ORDERED: DEXTROSE (50%) 50ML SYRG IV PRN (09:15)
[2023-01-28] MEDS: NIFEdipine ER 30 MG TAB PO SCH (09:59)
[2023-01-28] MEDS: PANTOPRAZOLE 40 MG/10 ML VIAL INJ IV SCH (09:59)
[2023-01-28] MEDS: CARVEDILOL 12.5 MG TAB PO SCH ×2 (10:00→21:34)
[2023-01-28] MEDS ORDERED: ALPRAZolam 0.25 MG TAB PO PRN (11:30)
[2023-01-28] MEDS: D5W/SOD CHL 0.45%/KCL 20MEQ 1,000 ML IV SCH ×2 (11:35→19:35)
[2023-01-29] VITALS (7 sets, daily range): BP systolic 108–172; BP diastolic 67–98
[2023-01-29] MEDS: CIPROFLOXACIN 400MG/200ML 200 ML IV SCH ×2 (03:03→15:37)
[2023-01-29] MEDS: D5W/SOD CHL 0.45%/KCL 20MEQ 1,000 ML IV SCH ×3 (03:55→20:35)
[2023-01-29] MEDS: hydrALAZINE HCL 20 MG/ML VL IV PRN (04:30)
[2023-01-29] MEDS: InsuLIN REG 1unit/0.01ml Soln (100units/ml) SC SCH ×4 (06:35→21:42)
[2023-01-29] MEDS: ACCU-CHEK COMFORT CURVE STRIP VI SCH ×4 (06:36→21:42)
[2023-01-29] MEDS: SUCRALFATE 1 GM/10 ML ORAL SUSP PO SCH ×4 (06:37→21:17)
[2023-01-29 07:00] LABS: Basophils # (auto) 0.1 10 ^3/uL (0-0.2); Basophils % (auto) 0.7 % (0.0-2.0); Eosinophils # (auto) 0.2 10 ^3/uL (0-0.8); Eosinophils % (auto) 1.6 % (0.0-7.0); Hematocrit 44.6 % (36.0-46.0); Hemoglobin 14.7 g/dL (12.2-16.2); Lymphocytes # (auto) 2.1 10 ^3/uL (0.4-5.4); Lymphocytes % (auto) 15.9 % (10.0-50.0); Mean Corpuscular Hemoglobin 27.5 pg (28.0-32.0); Mean Corpuscular Volume 83.4 fL (80.0-100.0); Monocytes # (auto) 1.5 10 ^3/uL (0-1.3); Monocytes % (auto) 10.9 % (0.0-12.0); Neutrophils # (auto) 9.5 10 ^3/uL (1.6-8.6); Neutrophils % (auto) 70.9 % (37.0-80.0); Nucleated Red Blood Cells % 0.3 %; Red Blood Cells 5.35 10^6/uL (4.0-5.20); Red Cell Distribution Width 14.4 % (11.8-14.3); White Blood Cell 13.4 10^3/uL (4.4-10.8)
[2023-01-29 07:31] LABS: Potassium 3.8 mmol/L (3.5-5.1)
[2023-01-29 07:40] LABS: Calcium 8.4 mg/dL (8.5-10.1); Magnesium 2.4 mg/dL (1.6-2.6)
[2023-01-29] MEDS: NIFEdipine ER 30 MG TAB PO SCH (09:34)
[2023-01-29] MEDS: CARVEDILOL 12.5 MG TAB PO SCH ×2 (09:35→21:19)
[2023-01-29] MEDS: PANTOPRAZOLE 40 MG/10 ML VIAL INJ IV SCH (09:35)
[2023-01-29] MEDS ORDERED: SODIUM CHLORIDE 0.9% 1,000 ML IV ONE (09:45)
[2023-01-29] MEDS: HYDROmorphone HCL 2 MG/ML VL/or syr IV PRN ×2 (11:54→21:20)
[2023-01-29] MEDS: metroNIDAZOLE 500MG/100ML 100 ML IV SCH (21:25)
[2023-01-30] VITALS (7 sets, daily range): BP systolic 122–156; BP diastolic 70–81
[2023-01-30] MEDS: D5W/SOD CHL 0.45%/KCL 20MEQ 1,000 ML IV SCH ×3 (01:14→21:35)
[2023-01-30] MEDS: CIPROFLOXACIN 400MG/200ML 200 ML IV SCH ×2 (03:27→15:00)
[2023-01-30] MEDS: metroNIDAZOLE 500MG/100ML 100 ML IV SCH ×4 (03:27→23:04)
[2023-01-30 05:25] LABS: Basophils # (auto) 0.1 10 ^3/uL (0-0.2); Basophils % (auto) 0.6 % (0.0-2.0); Eosinophils # (auto) 0.5 10 ^3/uL (0-0.8); Eosinophils % (auto) 4.2 % (0.0-7.0); Hematocrit 38.4 % (36.0-46.0); Hemoglobin 12.9 g/dL (12.2-16.2); Lymphocytes # (auto) 3.3 10 ^3/uL (0.4-5.4); Lymphocytes % (auto) 28.8 % (10.0-50.0); Mean Corpuscular Hgb Conc. 33.5 g/dL (32.0-36.0); Mean Corpuscular Volume 83.5 fL (80.0-100.0); Monocytes # (auto) 1.3 10 ^3/uL (0-1.3); Monocytes % (auto) 11.2 % (0.0-12.0); Neutrophils # (auto) 6.3 10 ^3/uL (1.6-8.6); Neutrophils % (auto) 55.2 % (37.0-80.0); Nucleated Red Blood Cells % 0.1 %; Red Cell Distribution Width 14.6 % (11.8-14.3); White Blood Cell 11.5 10^3/uL (4.4-10.8)
[2023-01-30 05:49] LABS: Calcium 7.6 mg/dL (8.5-10.1); Magnesium 2.4 mg/dL (1.6-2.6); Potassium 3.6 mmol/L (3.5-5.1)
[2023-01-30] MEDS: InsuLIN REG 1unit/0.01ml Soln (100units/ml) SC SCH ×4 (06:03→23:12)
[2023-01-30] MEDS: ACCU-CHEK COMFORT CURVE STRIP VI SCH ×4 (06:03→23:05)
[2023-01-30] MEDS: SUCRALFATE 1 GM/10 ML ORAL SUSP PO SCH ×4 (06:06→23:03)
[2023-01-30] MEDS: HYDROmorphone HCL 2 MG/ML VL/or syr IV PRN ×3 (06:55→20:49)
[2023-01-30] MEDS: CARVEDILOL 12.5 MG TAB PO SCH ×2 (10:13→23:22)
[2023-01-30] MEDS: PANTOPRAZOLE 40 MG/10 ML VIAL INJ IV SCH (10:14)
[2023-01-30] MEDS: NIFEdipine ER 30 MG TAB PO SCH (10:14)
[2023-01-31] MEDS: CIPROFLOXACIN 400MG/200ML 200 ML IV SCH ×2 (03:00→17:52)
[2023-01-31 04:37] VITALS: BP 106/60
[2023-01-31] MEDS: D5W/SOD CHL 0.45%/KCL 20MEQ 1,000 ML IV SCH (05:55)
[2023-01-31] MEDS: SUCRALFATE 1 GM/10 ML ORAL SUSP PO SCH ×4 (06:05→22:18)
[2023-01-31] MEDS: metroNIDAZOLE 500MG/100ML 100 ML IV SCH ×3 (06:05→22:18)
[2023-01-31] MEDS: ACCU-CHEK COMFORT CURVE STRIP VI SCH ×4 (06:06→22:19)
[2023-01-31] MEDS: InsuLIN REG 1unit/0.01ml Soln (100units/ml) SC SCH ×4 (06:19→22:00)
[2023-01-31 09:00] VITALS: BP 122/69
[2023-01-31] MEDS: HYDROmorphone HCL 2 MG/ML VL/or syr IV PRN ×2 (09:40→17:51)
[2023-01-31] MEDS: PANTOPRAZOLE 40 MG/10 ML VIAL INJ IV SCH (09:42)
[2023-01-31] MEDS: CARVEDILOL 12.5 MG TAB PO SCH ×2 (09:43→22:19)
[2023-01-31] MEDS: NIFEdipine ER 30 MG TAB PO SCH (09:44)
[2023-01-31 09:55] LABS: BUN/Creatinine Ratio 10.8 (10.0-20.0); Calcium 8.1 mg/dL (8.5-10.1); Potassium 3.7 mmol/L (3.5-5.1)
[2023-01-31 13:25] VITALS: BP 138/75
[2023-01-31 17:00] VITALS: BP 125/72
[2023-01-31 21:59] LABS: Urine Bacteria FEW /hpf (None Seen); Urine Blood Negative /uL (Negative); Urine Specific Gravity 1.006 (1.001-1.035); Urine WBC <1 /hpf (0 - 5)
[2023-01-31 22:00] VITALS: BP 148/81
[2023-01-31 22:12] LABS: Protein, Urine 12.8 mg/dL (0.0-11.9)
[2023-02-01] MEDS: CIPROFLOXACIN 400MG/200ML 200 ML IV SCH (03:37)
[2023-02-01 05:00] VITALS: BP 118/70
[2023-02-01 05:57] LABS: Albumin 2.6 g/dL (3.4-5.0); BUN/Creatinine Ratio 13.5 (10.0-20.0); Calcium 7.6 mg/dL (8.5-10.1); Potassium 3.7 mmol/L (3.5-5.1)
[2023-02-01 05:59] LABS: Bilirubin, Total 0.3 mg/dL (0.2-1.0); Total Protein 5.3 g/dL (6.4-8.2)
[2023-02-01] MEDS: ACCU-CHEK COMFORT CURVE STRIP VI SCH ×4 (06:06→22:34)
[2023-02-01] MEDS: InsuLIN REG 1unit/0.01ml Soln (100units/ml) SC SCH ×4 (06:06→22:33)
[2023-02-01] MEDS: SUCRALFATE 1 GM/10 ML ORAL SUSP PO SCH ×4 (06:33→22:31)
[2023-02-01] MEDS: metroNIDAZOLE 500MG/100ML 100 ML IV SCH ×3 (06:33→21:42)
[2023-02-01] MEDS: HYDROmorphone HCL 2 MG/ML VL/or syr IV PRN ×3 (07:12→20:19)
[2023-02-01 09:02] VITALS: BP 135/79
[2023-02-01] MEDS: PANTOPRAZOLE 40 MG/10 ML VIAL INJ IV SCH (10:37)
[2023-02-01] MEDS: NIFEdipine ER 30 MG TAB PO SCH (10:38)
[2023-02-01] MEDS: CARVEDILOL 12.5 MG TAB PO SCH ×2 (10:39→21:42)
[2023-02-01 13:00] VITALS: BP 118/70
[2023-02-01] MEDS: NYSTATIN TOPICAL POWDER 15GM TOP SCH ×2 (14:00→22:33)
[2023-02-01 17:21] VITALS: BP 133/66
[2023-02-01] MEDS: LACTATED RINGER'S 1,000 ML IV SCH (19:41)
[2023-02-01 22:00] VITALS: BP 134/65
[2023-02-02] MEDS: LACTATED RINGER'S 1,000 ML IV SCH (03:00)
[2023-02-02 05:00] VITALS: BP 142/86
[2023-02-02] MEDS: metroNIDAZOLE 500MG/100ML 100 ML IV SCH ×3 (05:07→21:21)
[2023-02-02] MEDS: NYSTATIN TOPICAL POWDER 15GM TOP SCH ×3 (05:08→21:22)
[2023-02-02] MEDS: SUCRALFATE 1 GM/10 ML ORAL SUSP PO SCH ×4 (05:45→21:20)
[2023-02-02] MEDS: HYDROmorphone HCL 2 MG/ML VL/or syr IV PRN ×2 (05:46→12:09)
[2023-02-02] MEDS: InsuLIN REG 1unit/0.01ml Soln (100units/ml) SC SCH ×4 (06:35→21:36)
[2023-02-02] MEDS: ACCU-CHEK COMFORT CURVE STRIP VI SCH ×4 (06:36→21:22)
[2023-02-02 06:41] LABS: Basophils # (auto) 0.1 10 ^3/uL (0-0.2); Basophils % (auto) 0.8 % (0.0-2.0); Eosinophils # (auto) 0.3 10 ^3/uL (0-0.8); Eosinophils % (auto) 2.9 % (0.0-7.0); Hematocrit 37.3 % (36.0-46.0); Hemoglobin 12.6 g/dL (12.2-16.2); Lymphocytes # (auto) 2.1 10 ^3/uL (0.4-5.4); Lymphocytes % (auto) 23.4 % (10.0-50.0); Mean Corpuscular Hemoglobin 28.4 pg (28.0-32.0); Mean Corpuscular Hgb Conc. 33.7 g/dL (32.0-36.0); Mean Corpuscular Volume 84.4 fL (80.0-100.0); Monocytes # (auto) 0.8 10 ^3/uL (0-1.3); Monocytes % (auto) 9.2 % (0.0-12.0); Neutrophils # (auto) 5.6 10 ^3/uL (1.6-8.6); Neutrophils % (auto) 63.7 % (37.0-80.0); Nucleated Red Blood Cells % 0.1 %; Red Blood Cells 4.42 10^6/uL (4.0-5.20); Red Cell Distribution Width 15.2 % (11.8-14.3); White Blood Cell 8.9 10^3/uL (4.4-10.8)
[2023-02-02 06:46] LABS: BUN/Creatinine Ratio 15.5 (10.0-20.0); Potassium 3.4 mmol/L (3.5-5.1)
[2023-02-02 06:47] LABS: Calcium 8.5 mg/dL (8.5-10.1)
[2023-02-02 09:00] VITALS: BP 153/82
[2023-02-02] MEDS: PANTOPRAZOLE 40 MG/10 ML VIAL INJ IV SCH (09:04)
[2023-02-02] MEDS: NIFEdipine ER 30 MG TAB PO SCH (09:05)
[2023-02-02] MEDS ORDERED: POTASSIUM CHL 20 Meq TABLET PO ONE (10:45)
[2023-02-02] MEDS: CARVEDILOL 12.5 MG TAB PO SCH ×2 (11:37→21:21)
[2023-02-02 13:13] VITALS: BP 127/60
[2023-02-02 17:00] VITALS: BP 124/61
[2023-02-02 22:00] VITALS: BP 139/77
[2023-02-03 05:22] VITALS: BP 132/55
[2023-02-03] MEDS: NYSTATIN TOPICAL POWDER 15GM TOP SCH ×2 (05:31→14:00)
[2023-02-03] MEDS: metroNIDAZOLE 500MG/100ML 100 ML IV SCH ×2 (05:31→14:00)
[2023-02-03] MEDS: SUCRALFATE 1 GM/10 ML ORAL SUSP PO SCH ×2 (06:06→12:00)
[2023-02-03] MEDS: ACCU-CHEK COMFORT CURVE STRIP VI SCH ×2 (06:07→12:00)
[2023-02-03] MEDS: InsuLIN REG 1unit/0.01ml Soln (100units/ml) SC SCH ×2 (06:07→11:30)
[2023-02-03 06:23] LABS: Calcium 8.2 mg/dL (8.5-10.1); Potassium 3.8 mmol/L (3.5-5.1)
[2023-02-03 06:27] LABS: BUN/Creatinine Ratio 16.2 (10.0-20.0)
[2023-02-03 09:00] VITALS: BP 127/79
[2023-02-03] MEDS: NIFEdipine ER 30 MG TAB PO SCH (09:05)
[2023-02-03] MEDS: CARVEDILOL 12.5 MG TAB PO SCH (09:06)
[2023-02-03] MEDS: PANTOPRAZOLE 40 MG/10 ML VIAL INJ IV SCH (09:06)
[2023-02-03] MEDS: HYDROmorphone HCL 2 MG/ML VL/or syr IV PRN (10:00)
[2023-02-03] MEDS ORDERED: PANT40TA2 PO (11:31)
[2023-02-03] MEDS ORDERED: SUCR1TAB PO (11:31)
[2023-02-03 12:51] VITALS: BP 129/72
[2023-02-03 13:00] VITALS: BP 129/72
== END 2023-02-03 15:00 | disposition home or self-care (01) | DRG 720 ==
LOC: ER 11:25 → EDBD 11:25 → TELE 17:25 → TELE-CENTR 01-24 22:09
PROVIDERS: ADMIT Nurse Practitioner Family; ATTEND Internal Medicine
PROC: 05HC33Z Insertion of Infusion Device into Left Basilic Vein, Percutaneous Approach (ICD-10-PCS; 2023-01-23)
PROC: B54NZZA Ultrasonography of Left Upper Extremity Veins, Guidance (ICD-10-PCS; 2023-01-23)
PROC: 0DB68ZX Excision of Stomach, Via Natural or Artificial Opening Endoscopic, Diagnostic (ICD-10-PCS; 2023-01-27)
PROC: 0DB98ZX Excision of Duodenum, Via Natural or Artificial Opening Endoscopic, Diagnostic (ICD-10-PCS; principal; 2023-01-27 14:08)
DX: A41.9 Sepsis, unspecified organism (principal); N17.0 Acute kidney failure with tubular necrosis; R65.21 Severe sepsis with septic shock; I21.A1 Myocardial infarction type 2; K22.10 Ulcer of esophagus without bleeding; D69.59 Other secondary thrombocytopenia; E11.22 Type 2 diabetes mellitus with diabetic chronic kidney disease; K57.92 Diverticulitis of intestine, part unspecified, without perforation or abscess without bleeding; E11.65 Type 2 diabetes mellitus with hyperglycemia; Z20.822 Contact with and (suspected) exposure to COVID-19; E66.01 Morbid (severe) obesity due to excess calories; E78.5 Hyperlipidemia, unspecified; E86.0 Dehydration; E87.6 Hypokalemia; I12.9 Hypertensive chronic kidney disease with stage 1 through stage 4 chronic kidney disease, or unspecified chronic kidney disease; K21.9 Gastro-esophageal reflux disease without esophagitis; K29.80 Duodenitis without bleeding; K25.9 Gastric ulcer, unspecified as acute or chronic, without hemorrhage or perforation; K59.00 Constipation, unspecified; K31.7 Polyp of stomach and duodenum; N39.0 Urinary tract infection, site not specified; N18.9 Chronic kidney disease, unspecified; K44.9 Diaphragmatic hernia without obstruction or gangrene; K52.9 Noninfective gastroenteritis and colitis, unspecified; Z68.34 Body mass index [BMI] 34.0-34.9, adult; Z79.84 Long term (current) use of oral hypoglycemic drugs; Z82.49 Family history of ischemic heart disease and other diseases of the circulatory system; Z83.3 Family history of diabetes mellitus; Z88.6 Allergy status to analgesic agent; Z90.49 Acquired absence of other specified parts of digestive tract; Z88.8 Allergy status to other drugs, medicaments and biological substances
CPT/HCPCS: 36415; 36600; 71045; 71250; 74176; 76705; 76775; 78582; 80048; 80053; 80061; 80074; 80307; 81001; 82010; 82306; 82570; 82805; 82962; 83036; 83516; 83520; 83605; 83690; 83735; 83880; 83930; 83970; 84100; 84156; 84300; 84443; 84484; 85007; 85025; 85027; 85048; 85379; 85610; 85730; 86141; 86160; 86225; 86235; 86256; 87040; 87045; 87081; 87086; 87426; 87427; 87493; 93005; 93306; 93970; 96361; 96365; 96367; 96368; 96375; 99291; C9113; G0378; J1815; J2001; J2250; J2405; J2704; J3480; J3490

== ENCOUNTER 2024-04-24 08:39 | Inpatient (IN) | payer MEDICAID ==
[~2024-04-24] VITALS: Ht 144.8 cm; Wt 90.3 kg
[~2024-04-24 08:39] MED LIST changes: -ACET300T4; +ACET300T58; +ATOR-47 PO; +[UNRECOGNIZED DRUG - CODE] PO; -[UNRECOGNIZED DRUG - CODE] PO
[2024-04-24 09:33] LABS: Basophils # (auto) 0.1 10 ^3/uL (0-0.2); Basophils % (auto) 0.9 % (0.0-2.0); Eosinophils # (auto) 0.2 10 ^3/uL (0-0.8); Eosinophils % (auto) 2.8 % (0.0-7.0); Hematocrit 46.4 % (36.0-46.0); Hemoglobin 15.2 g/dL (12.2-16.2); Lymphocytes # (auto) 1.6 10 ^3/uL (0.4-5.4); Lymphocytes % (auto) 25.8 % (10.0-50.0); Mean Corpuscular Hemoglobin 28.1 pg (28.0-32.0); Mean Corpuscular Hgb Conc. 32.8 g/dL (32.0-36.0); Mean Corpuscular Volume 85.8 fL (80.0-100.0); Monocytes # (auto) 0.4 10 ^3/uL (0-1.3); Monocytes % (auto) 5.6 % (0.0-12.0); Neutrophils % (auto) 64.9 % (37.0-80.0); Nucleated Red Blood Cells % 0.1 %; Red Blood Cells 5.41 10^6/uL (4.0-5.20); Red Cell Distribution Width 14.2 % (11.8-14.3); White Blood Cell 6.2 10^3/uL (4.4-10.8)
[2024-04-24 09:34] LABS: Urine Bacteria None Seen /hpf (None Seen)
[2024-04-24 09:42] LABS: Chloride 107 mmol/L (98-107); Potassium 3.9 mmol/L (3.5-5.1); Sodium 139 mmol/L (136-145)
[2024-04-24 09:43] LABS: Anion Gap 1 (5-15); Carbon Dioxide 31 mmol/L (20-30)
[2024-04-24 09:44] LABS: Calcium 9.9 mg/dL (8.5-10.1)
[2024-04-24 09:49] LABS: BUN/Creatinine Ratio 13.5 (10.0-20.0); Blood Urea Nitrogen 13 mg/dL (9-23); Glucose 140 mg/dL (74-106)
[2024-04-24 09:55] LABS: Urine Blood Negative /uL (Negative); Urine Clarity Clear (Clear); Urine Color Light-Yellow (Yellow); Urine Protein, UAD Negative (Negative); Urine Urobilinogen Normal (Negative); Urine WBC 1 /hpf (0 - 5); Urine pH 5.5 (5.0-9.0)
[2024-04-24 10:00] VITALS: PULSE 47; RESP 19; O2SAT 97
[2024-04-24] MEDS: SODIUM CHLORIDE 0.9% 1,000 ML IV ONE ×2 (10:05)
[2024-04-24] MEDS: KETOROLAC TROMETH 30 MG/ML 1ML VIAL IV ONE (10:17)
[2024-04-24] MEDS ORDERED: DEXTROSE (50%) 50ML SYRG IV PRN (11:30)
[2024-04-24] MEDS: SODIUM CHLORIDE 0.9% 1,000 ML IV SCH (11:54)
[2024-04-24] MEDS: ACCU-CHEK COMFORT CURVE STRIP VI SCH (12:01)
[2024-04-24] MEDS: InsuLIN REG 1unit/0.01ml Soln (100units/ml) SC SCH ×2 (12:05→22:30)
[2024-04-24] MEDS ORDERED: NITROGLYCERIN 0.4 MG SL TAB SL PRN (12:15)
[2024-04-24] MEDS ORDERED: MORPHINE SULFATE INJ 2 MG/ml SYRG IV PRN (12:15)
[2024-04-24] MEDS: MORPHINE SULFATE INJ 2 MG/ml SYRG IV PRN (13:24)
[2024-04-24 15:55] VITALS: PULSE 46; RESP 16; O2SAT 99
[2024-04-24 17:11] VITALS: BP 147/60; PULSE 46; RESP 19; TEMP 99.1; O2SAT 99
[2024-04-24] MEDS ORDERED: CLON0.3T PO (17:40)
[2024-04-24] MEDS ORDERED: FUR20T PO (17:40)
[2024-04-24] MEDS ORDERED: FAMO-12 PO (17:40)
[2024-04-24 20:00] VITALS: PULSE 52; RESP 18; O2SAT 98
[2024-04-24 21:00] VITALS: BP 192/78; PULSE 52; RESP 18; TEMP 98.2; O2SAT 98
[2024-04-24] MEDS: cloNIDine HCL 0.1 MG TAB PO ONE (23:22)
[2024-04-25] VITALS (9 sets, daily range): BP systolic 154–210; BP diastolic 66–104; PULSE 48–67; RESP 16–20; TEMP 97.5–99.6; O2SAT 95–98
[2024-04-25 07:11] LABS: Alanine Aminotransferase 18 U/L (7-40); Albumin 3.7 g/dL (3.2-4.8); Alkaline Phosphatase 117 U/L (46-116); Anion Gap 6 (5-15); Aspartate Aminotransferase 13 U/L (13-40); BUN/Creatinine Ratio 13.3 (10.0-20.0); Blood Urea Nitrogen 12 mg/dL (9-23); Carbon Dioxide 27 mmol/L (20-30); Chloride 109 mmol/L (98-107); Glucose 120 mg/dL (74-106); Potassium 3.8 mmol/L (3.5-5.1); Sodium 142 mmol/L (136-145)
[2024-04-25 07:12] LABS: Bilirubin, Total 0.3 mg/dL (0.2-1.0); Total Protein 6.2 g/dL (5.7-8.2)
[2024-04-25 07:20] LABS: Basophils # (auto) 0.1 10 ^3/uL (0-0.2); Basophils % (auto) 0.9 % (0.0-2.0); Eosinophils # (auto) 0.3 10 ^3/uL (0-0.8); Eosinophils % (auto) 4.2 % (0.0-7.0); Hematocrit 40.3 % (36.0-46.0); Hemoglobin 13.4 g/dL (12.2-16.2); Lymphocytes # (auto) 2.2 10 ^3/uL (0.4-5.4); Lymphocytes % (auto) 33.3 % (10.0-50.0); Mean Corpuscular Hemoglobin 28.5 pg (28.0-32.0); Mean Corpuscular Hgb Conc. 33.2 g/dL (32.0-36.0); Mean Corpuscular Volume 85.9 fL (80.0-100.0); Monocytes # (auto) 0.5 10 ^3/uL (0-1.3); Monocytes % (auto) 7.2 % (0.0-12.0); Neutrophils # (auto) 3.7 10 ^3/uL (1.6-8.6); Neutrophils % (auto) 54.4 % (37.0-80.0); Nucleated Red Blood Cells % 0.1 %; Red Blood Cells 4.69 10^6/uL (4.0-5.20); White Blood Cell 6.7 10^3/uL (4.4-10.8)
[2024-04-25] MEDS: METOPROLOL SUCCINATE XL 50 MG TAB PO ONE (10:32)
[2024-04-25] MEDS: HYDROmorphone HCL 2 MG/ML VL/or syr IV PRN (11:45)
[2024-04-25] MEDS: hydrALAZINE HCL 20 MG/ML VL IV PRN (14:08)
[2024-04-25] MEDS ORDERED: METO-289 PO (17:22)
[2024-04-25] MEDS ORDERED: ERGO1CAP12 PO (17:27)
[2024-04-25] MEDS ORDERED: SUCR1TAB PO (17:27)
[2024-04-25] MEDS ORDERED: HYDR-4902 PO (17:27)
[2024-04-25] MEDS ORDERED: POTA-36 PO (17:27)
[2024-04-25] MEDS ORDERED: DICL1GEL59 TOP (17:27)
[2024-04-26] VITALS (7 sets, daily range): BP systolic 136–206; BP diastolic 54–127; PULSE 85–124; RESP 18–21; TEMP 98.2–100.1; O2SAT 90–96
[2024-04-26 07:16] LABS: Basophils # (auto) 0.1 10 ^3/uL (0-0.2); Basophils % (auto) 0.5 % (0.0-2.0); Eosinophils # (auto) 0.1 10 ^3/uL (0-0.8); Eosinophils % (auto) 1.3 % (0.0-7.0); Hematocrit 46.7 % (36.0-46.0); Hemoglobin 15.5 g/dL (12.2-16.2); Lymphocytes # (auto) 2.6 10 ^3/uL (0.4-5.4); Lymphocytes % (auto) 24.8 % (10.0-50.0); Mean Corpuscular Hemoglobin 28.9 pg (28.0-32.0); Mean Corpuscular Hgb Conc. 33.2 g/dL (32.0-36.0); Mean Corpuscular Volume 86.9 fL (80.0-100.0); Monocytes # (auto) 0.6 10 ^3/uL (0-1.3); Neutrophils # (auto) 7.1 10 ^3/uL (1.6-8.6); Neutrophils % (auto) 67.4 % (37.0-80.0); Nucleated Red Blood Cells % 0.1 %; Red Blood Cells 5.37 10^6/uL (4.0-5.20); Red Cell Distribution Width 14.1 % (11.8-14.3); White Blood Cell 10.6 10^3/uL (4.4-10.8)
[2024-04-26 07:40] LABS: Alanine Aminotransferase 18 U/L (7-40); Albumin 4.4 g/dL (3.2-4.8); Alkaline Phosphatase 113 U/L (46-116); Anion Gap 9 (5-15); Aspartate Aminotransferase 16 U/L (13-40); BUN/Creatinine Ratio 14.1 (10.0-20.0); Bilirubin, Total 0.5 mg/dL (0.2-1.0); Blood Urea Nitrogen 11 mg/dL (9-23); Calcium 9.8 mg/dL (8.5-10.1); Carbon Dioxide 23 mmol/L (20-30); Chloride 105 mmol/L (98-107); Glucose 107 mg/dL (74-106); Potassium 3.8 mmol/L (3.5-5.1); Sodium 137 mmol/L (136-145); Total Protein 7.4 g/dL (5.7-8.2)
[2024-04-26] MEDS: cloNIDine HCL 0.1 MG TAB PO SCH (08:03)
[2024-04-26] MEDS: METOPROLOL SUCCINATE XL 50 MG TAB PO SCH (08:03)
[2024-04-26] MEDS: DexAMETHasone INJECTION 10 MG in D5W 5% 50 ML IV ONE ×2 (12:07→12:25)
[2024-04-26] MEDS ORDERED: cloNIDine HCL 0.1 MG TAB PO SCH (14:00)
[2024-04-26] MEDS: hydrALAZINE HCL 20 MG/ML VL IV PRN (21:44)
[2024-04-27] VITALS (9 sets, daily range): BP systolic 120–143; BP diastolic 53–80; PULSE 80–99; RESP 16–19; TEMP 98–98.4; O2SAT 95–96
[2024-04-27] MEDS: NIFEdipine ER 30 MG TAB PO ONE (12:06)
[2024-04-27] MEDS: DexAMETHasone INJECTION 10 MG in D5W 5% 50 ML IV SCH (12:06)
[2024-04-28] VITALS (8 sets, daily range): BP systolic 126–182; BP diastolic 55–95; PULSE 72–87; RESP 18–22; TEMP 97.9–98.4; O2SAT 94–98
[2024-04-28 07:13] LABS: Basophils # (auto) 0 10 ^3/uL (0-0.2); Basophils % (auto) 0.3 % (0.0-2.0); Eosinophils # (auto) 0 10 ^3/uL (0-0.8); Hematocrit 44.8 % (36.0-46.0); Hemoglobin 14.9 g/dL (12.2-16.2); Lymphocytes % (auto) 17.3 % (10.0-50.0); Mean Corpuscular Hemoglobin 28.5 pg (28.0-32.0); Mean Corpuscular Hgb Conc. 33.3 g/dL (32.0-36.0); Mean Corpuscular Volume 85.7 fL (80.0-100.0); Monocytes # (auto) 0.6 10 ^3/uL (0-1.3); Monocytes % (auto) 5.6 % (0.0-12.0); Neutrophils # (auto) 8.7 10 ^3/uL (1.6-8.6); Neutrophils % (auto) 76.8 % (37.0-80.0); Nucleated Red Blood Cells % 0.1 %; Red Blood Cells 5.24 10^6/uL (4.0-5.20); Red Cell Distribution Width 14.5 % (11.8-14.3); White Blood Cell 11.4 10^3/uL (4.4-10.8)
[2024-04-28 07:23] LABS: Alanine Aminotransferase 17 U/L (7-40); Albumin 4.6 g/dL (3.2-4.8); Alkaline Phosphatase 107 U/L (46-116); Anion Gap 8 (5-15); Aspartate Aminotransferase 15 U/L (13-40); Bilirubin, Total 0.5 mg/dL (0.2-1.0); Blood Urea Nitrogen 25 mg/dL (9-23); Calcium 9.8 mg/dL (8.5-10.1); Carbon Dioxide 24 mmol/L (20-30); Chloride 106 mmol/L (98-107); Glucose 130 mg/dL (74-106); Potassium 3.9 mmol/L (3.5-5.1); Sodium 138 mmol/L (136-145); Total Protein 7.6 g/dL (5.7-8.2)
[2024-04-28] MEDS: ONDANSETRON HCL 4 MG/2 ML VIAL IV PRN (09:26)
[2024-04-28] MEDS: NIFEdipine ER 30 MG TAB PO SCH (10:10)
[2024-04-28] MEDS: LOSARTAN POTASSIUM 50 MG TAB PO ONE (11:18)
[2024-04-28] MEDS: METOPROLOL TARTRATE 1MG/1ML-5ML VIAL IV ONE (14:30)
[2024-04-29] VITALS (8 sets, daily range): BP systolic 129–184; BP diastolic 62–85; PULSE 86–104; RESP 18–20; TEMP 98–99; O2SAT 94–97
[2024-04-29 07:26] LABS: Basophils # (auto) 0 10 ^3/uL (0-0.2); Basophils % (auto) 0.1 % (0.0-2.0); Eosinophils # (auto) 0 10 ^3/uL (0-0.8); Hematocrit 45.7 % (36.0-46.0); Lymphocytes % (auto) 16.7 % (10.0-50.0); Mean Corpuscular Hemoglobin 28.5 pg (28.0-32.0); Mean Corpuscular Hgb Conc. 32.8 g/dL (32.0-36.0); Mean Corpuscular Volume 86.8 fL (80.0-100.0); Monocytes # (auto) 1.1 10 ^3/uL (0-1.3); Monocytes % (auto) 9.1 % (0.0-12.0); Neutrophils % (auto) 74.1 % (37.0-80.0); Nucleated Red Blood Cells % 0.1 %; Red Blood Cells 5.26 10^6/uL (4.0-5.20); Red Cell Distribution Width 14.6 % (11.8-14.3); White Blood Cell 12.2 10^3/uL (4.4-10.8)
[2024-04-29 07:46] LABS: Calcium 9.5 mg/dL (8.5-10.1); Chloride 107 mmol/L (98-107); Potassium 3.5 mmol/L (3.5-5.1); Sodium 138 mmol/L (136-145)
[2024-04-29 07:47] LABS: Anion Gap 8 (5-15); Carbon Dioxide 23 mmol/L (20-30)
[2024-04-29 07:52] LABS: BUN/Creatinine Ratio 21.6 (10.0-20.0); Blood Urea Nitrogen 22 mg/dL (9-23); Glucose 120 mg/dL (74-106)
[2024-04-29] MEDS ORDERED: LOSARTAN POTASSIUM 50 MG TAB PO SCH (10:00)
[2024-04-29] MEDS: LOSARTAN POTASSIUM 50 MG TAB PO SCH (10:00)
[2024-04-29] MEDS ORDERED: metroNIDAZOLE 500MG/100ML 100 ML IV SCH (14:00)
[2024-04-29] MEDS: METOCLOPRAMIDE HCL 5MG/ml INJ 2ml VIAL IV SCH (15:55)
[2024-04-29] MEDS: PIPERACILLIN-TAZOB 3.375GM 100 ML IV SCH (18:11)
[2024-04-30] VITALS (7 sets, daily range): BP systolic 114–155; BP diastolic 59–83; PULSE 74–103; RESP 17–20; TEMP 98.2–98.5; O2SAT 94–97
[2024-04-30] MEDS: PANTOPRAZOLE 40 MG/10 ML VIAL INJ IV ONE (14:00)
[2024-04-30] MEDS: SUCRALFATE 1 GM TAB PO SCH (14:00)
[2024-04-30 15:06] LABS: Basophils # (auto) 0 10 ^3/uL (0-0.2); Basophils % (auto) 0.1 % (0.0-2.0); Eosinophils # (auto) 0 10 ^3/uL (0-0.8); Eosinophils % (auto) 0.1 % (0.0-7.0); Hematocrit 46.2 % (36.0-46.0); Hemoglobin 15.2 g/dL (12.2-16.2); Lymphocytes # (auto) 2.1 10 ^3/uL (0.4-5.4); Lymphocytes % (auto) 19.6 % (10.0-50.0); Mean Corpuscular Hemoglobin 28.2 pg (28.0-32.0); Mean Corpuscular Hgb Conc. 32.8 g/dL (32.0-36.0); Mean Corpuscular Volume 85.8 fL (80.0-100.0); Monocytes # (auto) 1.2 10 ^3/uL (0-1.3); Monocytes % (auto) 10.6 % (0.0-12.0); Neutrophils # (auto) 7.6 10 ^3/uL (1.6-8.6); Neutrophils % (auto) 69.6 % (37.0-80.0); Nucleated Red Blood Cells % 0.2 %; Red Blood Cells 5.39 10^6/uL (4.0-5.20); Red Cell Distribution Width 14.5 % (11.8-14.3); White Blood Cell 10.9 10^3/uL (4.4-10.8)
[2024-04-30 15:31] LABS: Alanine Aminotransferase 33 U/L (7-40); Albumin 3.9 g/dL (3.2-4.8); Alkaline Phosphatase 79 U/L (46-116); Anion Gap 9 (5-15); Aspartate Aminotransferase 20 U/L (13-40); BUN/Creatinine Ratio 17.8 (10.0-20.0); Blood Urea Nitrogen 16 mg/dL (9-23); Calcium 8.6 mg/dL (8.7-10.4); Carbon Dioxide 25 mmol/L (20-30); Glucose 260 mg/dL (74-106); Magnesium 2.1 mg/dL (1.6-2.6); Potassium 3.3 mmol/L (3.5-5.1)
[2024-04-30 15:32] LABS: Total Protein 6.9 g/dL (5.7-8.2)
[2024-04-30 15:33] LABS: Chloride 97 mmol/L (98-107); Sodium 131 mmol/L (136-145)
[2024-04-30] MEDS: DOCUSATE SOD 100 MG CAP PO PRN (20:19)
[2024-04-30] MEDS ORDERED: HYDROcodone-ACET 5/325MG TAB PO PRN (21:00)
[2024-04-30] MEDS: PANTOPRAZOLE 40 MG/10 ML VIAL INJ IV SCH (21:59)
[2024-05-01] VITALS (10 sets, daily range): BP systolic 105–149; BP diastolic 51–78; PULSE 87–108; RESP 16–20; TEMP 98.2–99.8; O2SAT 92–98
[2024-05-01] MEDS ORDERED: FLUMAZENIL 0.1 MG/ML INJ 10ML MDV IV ONE (09:32)
[2024-05-01] MEDS ORDERED: SODIUM CHLORIDE LOCK 10 ML ONE (09:32)
[2024-05-01] MEDS ORDERED: NALOXONE HCL 0.4 MG/ML VIAL ONE (09:32)
[2024-05-01] MEDS: LIDOCAINE VISCOUS 2% 15ML UD ONE (12:16)
[2024-05-01] MEDS: diphenhdrAMINE HCL 50 MG/1 ML VL ONE (12:17)
[2024-05-01] MEDS: fentaNYL CITRATE 100 MCG/2 ML VL ONE (12:17)
[2024-05-01] MEDS: MIDAZOLAM HCL 5 MG/ML-1ML VIAL ONE (12:17)
[2024-05-02] VITALS (8 sets, daily range): BP systolic 103–142; BP diastolic 43–87; PULSE 83–107; RESP 16–20; TEMP 97.3–98.9; O2SAT 90–97
[2024-05-02 06:28] LABS: Anion Gap 7 (5-15); Calcium 8.8 mg/dL (8.7-10.4); Carbon Dioxide 26 mmol/L (20-30); Chloride 104 mmol/L (98-107); Potassium 2.8 mmol/L (3.5-5.1); Sodium 137 mmol/L (136-145)
[2024-05-02 06:34] LABS: BUN/Creatinine Ratio 14.3 (10.0-20.0); Blood Urea Nitrogen 14 mg/dL (9-23); Glucose 125 mg/dL (74-106); Magnesium 2.1 mg/dL (1.6-2.6)
[2024-05-02] MEDS: POTASSIUM EFFERVESENT TAB 25 MEQ PO ONE (09:39)
[2024-05-02] MEDS: POTASSIUM CHLORIDE 40 MEQ in D5W/LACTATED RINGERS 1,000 ML IV SCH (11:37)
[2024-05-02] MEDS: HYDROmorphone HCL 2 MG/ML VL/or syr IV PRN (12:00)
[2024-05-03] VITALS (8 sets, daily range): BP systolic 107–143; BP diastolic 48–90; PULSE 78–102; RESP 16–20; TEMP 98–99.2; O2SAT 92–98
[2024-05-03 06:49] LABS: Alanine Aminotransferase 19 U/L (7-40); Alkaline Phosphatase 68 U/L (46-116); Anion Gap 6 (5-15); BUN/Creatinine Ratio 8.1 (10.0-20.0); Blood Urea Nitrogen 7 mg/dL (9-23); Calcium 8.8 mg/dL (8.7-10.4); Carbon Dioxide 26 mmol/L (20-30); Chloride 107 mmol/L (98-107); Glucose 96 mg/dL (74-106); Potassium 2.7 mmol/L (3.5-5.1); Sodium 139 mmol/L (136-145)
[2024-05-03 06:50] LABS: Albumin 3.6 g/dL (3.2-4.8); Bilirubin, Total 0.7 mg/dL (0.2-1.0)
[2024-05-03 07:09] LABS: Aspartate Aminotransferase 13 U/L (13-40)
[2024-05-03] MEDS: POTASSIUM EFFERVESENT TAB 25 MEQ PO ONE (15:00)
[2024-05-03] MEDS: PIPERACILLIN-TAZOB 3.375GM 100 ML IV SCH (21:24)
[2024-05-04 01:00] VITALS: BP 125/75; PULSE 85; RESP 16; TEMP 98.1; O2SAT 98
[2024-05-04 05:00] VITALS: BP_SYST 122; BP_SYST 131; BP_DIAS 65; BP_DIAS 72; PULSE 74; PULSE 98; RESP 17; RESP 19; TEMP 98.4; TEMP 98.5; O2SAT 96; O2SAT 97
[2024-05-04 07:18] LABS: Anion Gap 6 (5-15); Carbon Dioxide 28 mmol/L (20-30); Chloride 107 mmol/L (98-107); Potassium 3.7 mmol/L (3.5-5.1); Sodium 141 mmol/L (136-145)
[2024-05-04 07:19] LABS: Calcium 8.8 mg/dL (8.5-10.1)
[2024-05-04 07:24] LABS: BUN/Creatinine Ratio 9.6 (10.0-20.0); Blood Urea Nitrogen 8 mg/dL (9-23); Glucose 94 mg/dL (74-106)
[2024-05-04 09:00] VITALS: BP_SYST 120; BP_DIAS 55; BP_DIAS 75; PULSE 71; PULSE 80; RESP 16; RESP 18; TEMP 97.6; TEMP 98.1; O2SAT 95; O2SAT 97
[2024-05-04 13:00] VITALS: BP 140/84; PULSE 84; RESP 14; TEMP 98.1; O2SAT 96
[2024-05-04] MEDS ORDERED: SUCR1TAB31 OR (14:20)
[2024-05-04] MEDS ORDERED: PANT40TA2 PO (14:20)
[2024-05-04] MEDS ORDERED: LOSA-534 PO (14:29)
[2024-05-04 17:00] VITALS: BP 127/57; PULSE 76; RESP 14; TEMP 98.1; O2SAT 95
[2024-05-04 18:24] VITALS: BP 127/57; PULSE 71; TEMP 36.7
== END 2024-05-04 18:45 | disposition home or self-care (01) | DRG 241 ==
LOC: ER 08:39 → OVERFLOW 12:15 → WEST WING 15:44
PROVIDERS: ADMIT Nurse Practitioner Family; ATTEND Internal Medicine Geriatric Medicine
PROC: 0DB68ZX Excision of Stomach, Via Natural or Artificial Opening Endoscopic, Diagnostic (ICD-10-PCS; 2024-05-01)
PROC: 0DB38ZX Excision of Lower Esophagus, Via Natural or Artificial Opening Endoscopic, Diagnostic (ICD-10-PCS; 2024-05-01)
PROC: 0DB98ZX Excision of Duodenum, Via Natural or Artificial Opening Endoscopic, Diagnostic (ICD-10-PCS; principal; 2024-05-01 12:10)
DX: K26.9 Duodenal ulcer, unspecified as acute or chronic, without hemorrhage or perforation (principal); R71.0 Precipitous drop in hematocrit; K29.80 Duodenitis without bleeding; E11.9 Type 2 diabetes mellitus without complications; K29.00 Acute gastritis without bleeding; K21.00 Gastro-esophageal reflux disease with esophagitis, without bleeding; I16.0 Hypertensive urgency; G89.4 Chronic pain syndrome; F32.A Depression, unspecified; I10 Essential (primary) hypertension; N26.1 Atrophy of kidney (terminal); E66.01 Morbid (severe) obesity due to excess calories; E78.2 Mixed hyperlipidemia; K44.9 Diaphragmatic hernia without obstruction or gangrene; Z88.6 Allergy status to analgesic agent; Z83.3 Family history of diabetes mellitus; Z68.41 Body mass index [BMI] 40.0-44.9, adult; Z79.4 Long term (current) use of insulin; Z79.899 Other long term (current) drug therapy; Z82.49 Family history of ischemic heart disease and other diseases of the circulatory system; Z80.41 Family history of malignant neoplasm of ovary
CPT/HCPCS: 36415; 43239; 71045; 74176; 80048; 80053; 81001; 82962; 83036; 83735; 85025; 87045; 87427; 93306; 96361; 96374; 97163; C9113; G0378; J1100; J1815; J1885; J2250; J2405; J2543; J7060

== ENCOUNTER 2024-12-06 09:32 | Day surgery (SDC) | payer MEDICAID ==
[2024-12-04 14:57] LABS: Basophils # (auto) 0.1 10 ^3/uL (0-0.2); Basophils % (auto) 1.3 % (0.0-2.0); Eosinophils # (auto) 0.2 10 ^3/uL (0-0.8); Eosinophils % (auto) 3.9 % (0.0-7.0); Hematocrit 44.5 % (36.0-46.0); Hemoglobin 14.9 g/dL (12.2-16.2); Lymphocytes # (auto) 1.7 10 ^3/uL (0.4-5.4); Lymphocytes % (auto) 29.7 % (10.0-50.0); Mean Corpuscular Hemoglobin 28.3 pg (28.0-32.0); Mean Corpuscular Hgb Conc. 33.4 g/dL (32.0-36.0); Mean Corpuscular Volume 84.6 fL (80.0-100.0); Monocytes # (auto) 0.4 10 ^3/uL (0-1.3); Monocytes % (auto) 6.7 % (0.0-12.0); Neutrophils # (auto) 3.3 10 ^3/uL (1.6-8.6); Neutrophils % (auto) 58.4 % (37.0-80.0); Nucleated Red Blood Cells % 0.1 %; Platelet Count (auto) 173 10^3/uL (140-450); Red Blood Cells 5.26 10^6/uL (4.0-5.20); Red Cell Distribution Width 13.7 % (11.8-14.3); White Blood Cell 5.7 10^3/uL (4.4-10.8)
[2024-12-04 15:11] LABS: INR 0.97 (0.9-1.15); Partial Thromboplastin Time 26.5 SEC (24.5-34.5); Prothrombin Time 10.3 sec (9.3-11.8)
[2024-12-04 15:23] LABS: Alanine Aminotransferase 18 U/L (7-40); Albumin 4.6 g/dL (3.2-4.8); Alkaline Phosphatase 109 U/L (46-116); Anion Gap 7 (5-15); Aspartate Aminotransferase 17 U/L (13-40); BUN/Creatinine Ratio 18.4 (10.0-20.0); Bilirubin, Total 0.5 mg/dL (0.2-1.0); Blood Urea Nitrogen 18 mg/dL (9-23); Calcium 10.3 mg/dL (8.7-10.4); Carbon Dioxide 30 mmol/L (20-31); Chloride 105 mmol/L (98-107); Glucose 97 mg/dL (74-106); Potassium 3.9 mmol/L (3.5-5.1); Sodium 142 mmol/L (136-145); Total Protein 7.3 g/dL (5.7-8.2)
[~2024-12-06] VITALS: Ht 154.9 cm; Wt 84.4 kg
[~2024-12-06 09:32] MED LIST changes: -ACET300T58; -ASPI1CHW13 PO; -CARI-277 PO; -CLON0.2T PO; +CLON0.3T PO; +DICL1GEL59 TOP; +DICY-89 PO; -DULO30CA PO; +ERGO1CAP12 PO; +EZET10TA22 PO; +FLUMAZENIL 0.1 MG/ML INJ 10ML MDV IV ONE; +FURO20TA4 PO; +LACT10SO3 PO; -LEVO500T31 PO; +METO-289 PO; -METO1TAB9; +NALOXONE HCL 0.4 MG/ML VIAL ONE; -NITR-87 PO; +OMEP20TA PO; -PANT40TA2 PO; +POTA-36 PO; +SEMA2INJ3 SC; +SODIUM CHLORIDE LOCK 10 ML ONE; -[UNRECOGNIZED DRUG - CODE] PO
[2024-12-06 11:45] VITALS: PULSE 67; RESP 19; O2SAT 100
[2024-12-06] MEDS: diphenhdrAMINE HCL 50 MG/1 ML VL ONE (11:48)
[2024-12-06] MEDS: fentaNYL CITRATE 100 MCG/2 ML VL ONE (11:48)
[2024-12-06] MEDS: MIDAZOLAM HCL 5 MG/ML-1ML VIAL ONE (11:48)
--- NOTE | 2024-12-06 12:23 | DVHOP2 ---
Operative Report DATE OF OPERATION: 12/06/24 PROCEDURE: Diagnostic Colonoscopy. PREOPERATIVE INDICATION: The patient is a 59 -year-old female undergoing colonoscopy for colon cancer screening with change him hiatal habits increasing constipation POSTOPERATIVE DIAGNOSES: 1. Trace internal hemorrhoids otherwise completely normal colonoscopy examination up to the terminal ileum PROCEDURE PERFORMED BY: Anton Munguia M.D. SCOPE: Olympus videocolonoscope. ASA CLASS: 2. PREOPERATIVE MEDICATIONS: Versed 3 mg IV, fentanyl 100 mcg IV, Benadryl 50 mg IV PROCEDURE IN DETAIL: After obtaining an informed consent, the patient was placed on left lateral decubitus position. She was then sedated with the above medications. A rectal examination was performed that was normal. The colonoscope was then passed through the anus into the rectosigmoid and through the descending, transverse, and ascending colon up to the cecum with visualization of the appendiceal orifice, base of the cecum and the ileocecal valve. The colonoscope was then withdrawn. The distal 5 cm of the terminal ileum were normal No polyps masses or lesions were seen. There was no colitis or clear-cut diverticular disease On retroflexion and straight on view the patient had trace internal hemorrhoids The patient tolerated the procedure well without difficulty. WITHDRAWAL TIME: 6 minutes QUALITY OF THE PREP: [place] Bowel Prep score: Number no COMPLICATIONS : None SPECIMENS: None DISPOSITION: Stable D/C to home PLAN: 1. Repeat colonoscopy in 10 years 2. Resume GI soft diet 3. Increase fluid and fiber intake 4. Outpatient follow up with me in 4-6 weeks to review results and discuss further management ANTON MUNGUIA MD Dec 06, 2024 12:23
[2024-12-06 12:30] VITALS: BP 148/83; PULSE 67; RESP 14; O2SAT 98
== END 2024-12-06 12:33 | disposition home or self-care (01) ==
LOC: GI 09:32
PROVIDERS: ATTEND Internal Medicine Gastroenterology
DX: K59.00 Constipation, unspecified (principal); K64.8 Other hemorrhoids; I10 Essential (primary) hypertension; E11.9 Type 2 diabetes mellitus without complications; K21.9 Gastro-esophageal reflux disease without esophagitis; Z90.49 Acquired absence of other specified parts of digestive tract; Z79.899 Other long term (current) drug therapy; Z98.890 Other specified postprocedural states
CPT/HCPCS: 36415; 45378; 80053; 82962; 85025; 85610; 85730; J1200; J2250; J3010; J7030; 99152